=== PATIENT | male | born 1955 | race American Indian/Alaskan Native ===

== ENCOUNTER 2021-01-07 14:39 | Outpatient (CLI) | payer OTHER | END 2021-01-07 14:49 | disposition home or self-care (01) | LOC: SONOGRAMA 14:39 | PROVIDERS: ATTEND General Practice | DX: N17.8 Other acute kidney failure (principal) ==

== ENCOUNTER 2021-04-02 07:07 | Outpatient (CLI) | payer OTHER | END 2021-04-02 07:13 | disposition home or self-care (01) | LOC: MRI 07:07 | DX: M54.12 Radiculopathy, cervical region (principal); M99.02 Segmental and somatic dysfunction of thoracic region; M54.2 Cervicalgia; M99.03 Segmental and somatic dysfunction of lumbar region | CPT/HCPCS: 72141 ==

== ENCOUNTER 2021-07-24 08:00 | Outpatient (CLI) | payer OTHER | END 2021-07-24 08:30 | disposition home or self-care (01) | LOC: PPH VACUNA 08:00 | PROVIDERS: ATTEND Emergency Medicine Pediatric Emergency Medicine | DX: Z23 Encounter for immunization (principal) ==

== ENCOUNTER 2023-11-01 14:13 | Outpatient (CLI) | payer OTHER | END 2023-11-01 14:24 | disposition home or self-care (01) | LOC: SONOGRAMA 14:13 | PROVIDERS: ATTEND General Practice | DX: N18.32 Chronic kidney disease, stage 3b (principal) ==

== ENCOUNTER → 2024-05-28 | Outpatient (CLI) | payer OTHER | END | disposition home or self-care (01) | LOC: MRI 11:45 | PROVIDERS: ATTEND Orthopaedic Surgery | DX: M25.512 Pain in left shoulder (principal); M25.522 Pain in left elbow; M75.122 Complete rotator cuff tear or rupture of left shoulder, not specified as traumatic | CPT/HCPCS: 73221 ==